=== PATIENT | female | born 1965 | race Two or more races ===

== ENCOUNTER 2017-09-22 12:57 | Day surgery (SDC) | payer BC ==
[~2017-09-22] VITALS: Ht 154.9 cm; Wt 78.9 kg
[~2017-09-22 12:57] MED LIST: TRAM50TA2
[2017-09-22] MEDS ORDERED: BENA5TAB2 PO (13:39)
[2017-09-22] MEDS ORDERED: COLACE PO (13:39)
[2017-09-22 13:42] VITALS: Ht 154.9 cm; Wt 78.9 kg
[2017-09-22 14:06] VITALS: BP 148/75; PULSE 82; RESP 18
[2017-09-22] MEDS ORDERED: FENTAnyl 50 MCG/ML VIAL ONE (14:50)
[2017-09-22] MEDS ORDERED: MIDAZOLAM 1 MG/ML 2 ML INJ ONE ×2 (14:50)
--- NOTE | 2017-09-22 14:53 | OPPN ---
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
--- NOTE | 2017-09-23 05:20 | GILP ---
DATE OF PROCEDURE: PREOPERATIVE DIAGNOSIS: Screening colonoscopy. POSTOPERATIVE DIAGNOSIS: Grade II internal hemorrhoids, 1 AVM in the sigmoid colon, otherwise germaine l colonoscopy. DESCRIPTION OF PROCEDURE: The patient was put in left lateral decubitus after obtaining informed co nsent, was sedated with 3 mg IV Versed and 50 mcg of fentanyl. Very carefully advanced, an Olympus video colonoscope all the way to cecum. Appendiceal opening and ileocecal valve were identified. C ecum, ascending colon, transverse colon normal. Descending colon normal. In the sigmoid colon, 1 s mall AVM noted not bleeding and in the rectum including retroflexion, a grade II internal hemorrhoid s noted, otherwise normal. Upon removal of scope, patient had no complication. FINAL IMPRESSION: Normal colonoscopy except for 1 AVM in the sigmoid colon which was not bleeding a nd grade II internal hemorrhoids. Recommend to follow with the primary MD. Repeat colonoscopy in 1 0 years. Dictated By: JOAN MOORE Conf#: [id number] DID#: [id number] CC: Prudencio Solano D.O.;*End*
== END 2017-09-22 16:35 | disposition home or self-care (01) ==
LOC: GIL 12:57
PROVIDERS: ATTEND Internal Medicine
DX: Z12.11 Encounter for screening for malignant neoplasm of colon (principal); K64.1 Second degree hemorrhoids; I10 Essential (primary) hypertension
CPT/HCPCS: 45378; J2250; J3010; Z7610